=== PATIENT | female | born 1970 | race Asian ===

== ENCOUNTER 2020-10-03 10:57 | Observation (INO) | payer BC ==
[2020-10-03 11:53] LABS: Urine Blood 3+ (Negative); Urine Glucose Negative (Negative); Urine Protein 2+ (Negative); Urine Specific Gravity >=1.030 (1.005-1.030); Urine pH 5.5 (5.0-7.0)
[2020-10-03 12:07] LABS: Urine Specific Gravity/Preg >1.030 (1.005-1.030)
--- NOTE | 2020-10-03 12:40 | RAD REPORT ---
EXAM DESCRIPTION: US - Transvaginal Study Probe - 10/03/2020 12:09 pm CLINICAL HISTORY: ABD PAIN Pelvic pain. COMPARISON: No comparisons FINDINGS: The uterus is normal in size, shape and echotexture. At the level of the uterine mid body there is a small 1 cm hypoechoic submucosal fibroid noted there is also potentially The uterus measur es 10.4 x 6.8 x 5.6 cm. The endometrial stripe measures 4 mm, normal. Both ovaries are normal in size, shape and echotexture. The right ovary measures 3.8 x 2.8 cm. The left ovary measures 3.2 x 2.8 cm. No ovarian or parovarian lesions. No adnexal masses. Normal Doppler blood flow was demonstrated to both ovaries. No significant pelvic ascites. IMPRESSION: Small submucosal fibroid at the level of the mid body of the uterus.
[2020-10-03 12:45] LABS: Hematocrit 26.6 % (36.0-45.0); MPV 9.2 fL (7.6-11.3); RBC Red Blood Cell Count 4.21 M/uL (3.86-4.86)
[2020-10-03 12:55] LABS: Protime INR 0.97
--- NOTE | 2020-10-03 12:58 | RAD REPORT ---
EXAM DESCRIPTION: RAD - Chest Single View - 10/03/2020 12:44 pm CLINICAL HISTORY: COUGH, intermittent shortness of breath COMPARISON: None TECHNIQUE: AP portable chest image was obtained 10/03/2020 12:44 pm . FINDINGS: Lungs are clear. Heart and vasculature are normal. No measurable pleural effusion and no p neumothorax. No acute bony abnormality seen. No acute aortic findings suspected. IMPRESSION: No acute cardiopulmonary process.
[2020-10-03 13:00] LABS: Albumin 3.4 g/dL (3.4-5.0); Bilirubin Direct 0.2 mg/dL (0-0.2); Bilirubin Total 0.4 mg/dL (0.2-1.0); Magnesium 1.8 mg/dL (1.8-2.4); Troponin (Emerg Dept Use Only) 0.06 ng/mL (0.0-0.045)
[2020-10-03 13:37] LABS: Anisocytosis 1+; Blood Morphology Comment NOTED (NOT SEEN); Hypochromasia 2+; Platelet Estimate ADEQ
[2020-10-03 13:38] LABS: Ovalocytes 1+
--- NOTE | 2020-10-03 13:39 | ER ---
Nurse's Notes [facility] Name: Max Montana Age: 50 yrs Sex: Female : 1970 Arrival Date: 10/03/2020 Time: 10:58 Bed 15 Private MD: Jessika Putnam K Diagnosis: Abnormal uterine and vaginal bleeding, unspecified;Dizziness and giddiness;Weakness-ELEVATED TROPONIN;Syncope Near Presentation: 10/03 11:11 Chief complaint: Patient states: Heavy menstrual cycle since Wednesday, reports that she ph is passing large clots, c/o dizziness, headache, and intermittent SOB, near syncopal episode today while at the gym. Coronavirus screen: Client denies travel out of the [place] in the last 14 days. At this time, the client does not indicate any symptoms associated with coronavirus-19. Ebola Screen: No symptoms or risks identified at this time. Initial Sepsis Screen: Does the patient meet any 2 criteria? No. Patient's initial sepsis screen is negative. Does the patient have a suspected source of infection? No. Patient's initial sepsis screen is negative. Risk Assessment: Do you want to hurt yourself or someone else? Patient reports no desire to harm self or others. Onset of symptoms was October 03, 2020. 11:11 Method Of Arrival: Ambulatory ph 11:11 Acuity: REE 3 ph Historical: - Allergies: 11:13 No Known Allergies; ph - PMHx: 11:13 None; ph - Immunization history:: Client reports receiving the 2nd dose of the Covid vaccine. - Social history:: Smoking status: Patient denies any tobacco usage or history of. - Family history:: not pertinent. Screenin:13 Abuse screen: Denies threats or abuse. Denies injuries from another. Nutritional tr6 screening: No deficits noted. Tuberculosis screening: No symptoms or risk factors identified. Fall Risk None identified. Assessment: 13:00 General: Appears in no apparent distress. comfortable, Behavior is calm, cooperative, tr6 appropriate for age. Pain: Complains of pain in lower abdominal cramping. Neuro: No deficits noted. Cardiovascular: No deficits noted. Respiratory: No deficits noted. GI: Abdomen is flat, non-distended, Bowel sounds present X 4 quads. Abd is non tender. : Reports vaginal bleeding that is with clots. EENT: No deficits noted. Derm: No deficits noted. Musculoskeletal: No deficits noted. 13:01 Reassessment: pt reports that she began feeling dizzy earlier this mornign. tr6 13:04 Reassessment: MD Croft at bedside to assess pt. ph Vital Signs: 11:11 BP 113 / 74; Pulse 83; Resp 18; Temp 98.0; Pulse Ox 100% on R/A; Weight 51.71 kg; ph Height 5 ft. 1 in. (154.94 cm); 11:11 Body Mass Index 21.54 (51.71 kg, 154.94 cm) ph ED Course: 10:58 Patient arrived in ED. am2 10:59 Jessika Putnam MD is Private Physician. am2 11:13 Triage completed. ph 11:13 Arm band placed on Patient placed in an exam room. ph 11:14 Tomi Croft MD is Attending Physician. [facility] 11:32 Vandana Mcdowell RN is Primary Nurse. tr6 11:53 Patient has correct armband on for positive identification. Placed in gown. Bed in low mh5 position. Call light in reach. Side rails up X 1. Adult w/ patient. Warm blanket given. classroom monitor on. Pulse ox on. NIBP on. 11:53 Urine collected: clean catch specimen, blood tinged. 5 12:07 Transvaginal Study (Probe) In Process Unspecified. EDNH 12:35 Liver (Hepatic) Function Sent. 5 12:35 Magnesium Sent. 5 12:35 CBC with Automated Diff Sent. 5 12:35 Basic Metabolic Panel Sent. 5 12:35 Type And Screen Sent. 5 12:35 Basic Metabolic Panel Sent. 5 12:35 CBC with Diff Sent. mh5 12:35 LFT's Sent. 5 12:35 Magnesium Sent. 5 12:36 NT PRO-BNP Sent. 5 12:36 PT-INR Sent. 5 12:36 Troponin (emerg Dept Use Only) Sent. 5 12:36 Initial lab(s) drawn, by me, sent to lab. EKG done, by ED staff, reviewed by Tomi Crfot MD T\T\S collected, blood band applied to patient. Inserted saline lock: 20 gauge in right upper arm, using aseptic technique. Blood collected. 12:44 XRAY Chest (1 view) In Process Unspecified. EDNH 13:33 Priscilla Daniel MD is Hospitalizing Provider. [facility] 17:13 No provider procedures requiring assistance completed. Patient admitted, IV remains in tr6 place. Administered Medications: 13:57 Drug: NS 0.9% 500 ml Route: IV; Rate: bolus; Site: right upper arm; tr6 15:40 Drug: NS 0.9% 1000 ml Route: IV; Rate: 125 ml/hr; Site: right antecubital; tr6 Outcome: 13:38 Decision to Hospitalize by Provider. [facility] 17:13 Admitted to Med/surg family with patient, via wheelchair, with chart, Report called to tr6 katie 17:13 Condition: stable 17:13 Instructed on the need for admit. 17:41 Patient left the ED. tr6 Signatures: Dispatcher [employer] EDMS Tomi Croft MD MD cha Hall, Patricia, RN RN Hoda Avila [facility] Sommer Mark [facility] Vandana Mcdowell RN RN tr6
--- NOTE | 2020-10-03 13:39 | EDPHYS ---
Physician Documentation [facility] Name: Max Montana Age: 50 yrs Sex: Female : 1970 Arrival Date: 10/03/2020 Time: 10:58 Bed 15 Private MD: Jessika Putnam K ED Physician Tomi Croft HPI: 10/03 13:26 This 50 yrs old Female presents to ER via Ambulatory with complaints of benjamín Dizziness, Vaginal Bleeding - blood clots. 13:26 The patient presents with dizziness. Onset: The symptoms/episode began/occurred just benjamín prior to arrival. Context: occurred GYM. Modifying factors: The symptoms are alleviated by lying down, the symptoms are aggravated by ACTIVITY. Associated signs and symptoms: The patient has no apparent associated signs or symptoms. Severity of symptoms: At their worst the symptoms were mild in the emergency department the symptoms have improved mildly. Patient's baseline: Neuro: alert and fully oriented. The patient has not experienced similar symptoms in the past. Historical: - Allergies: 11:13 No Known Allergies; ph - PMHx: 11:13 None; ph - Immunization history:: Client reports receiving the 2nd dose of the Covid vaccine. - Social history:: Smoking status: Patient denies any tobacco usage or history of. - Family history:: not pertinent. ROS: 13:26 Constitutional: Negative for fever, chills, and weight loss, Eyes: Negative for injury, benjamín pain, redness, and discharge, ENT: Negative for injury, pain, and discharge, Neck: Negative for injury, pain, and swelling, Cardiovascular: Negative for chest pain, palpitations, and edema, Respiratory: Negative for shortness of breath, cough, wheezing, and pleuritic chest pain, Abdomen/GI: Negative for abdominal pain, nausea, vomiting, diarrhea, and constipation, Back: Negative for injury and pain, MS/Extremity: Negative for injury and deformity, Skin: Negative for injury, rash, and discoloration, Psych: Negative for depression, anxiety, suicide ideation, homicidal ideation, and hallucinations, Allergy/Immunology: Negative for hives, rash, and allergies, Endocrine: Negative for neck swelling, polydipsia, polyuria, polyphagia, and marked weight changes, Hematologic/Lymphatic: Negative for swollen nodes, abnormal bleeding, and unusual bruising. 13:26 : Positive for vaginal bleeding. 13:26 Neuro: Positive for dizziness, weakness. Exam: 13:26 Constitutional: This is a well developed, well nourished patient who is awake, alert, benjamín and in no acute distress. Head/Face: Normocephalic, atraumatic. Eyes: Pupils equal round and reactive to light, extra-ocular motions intact. Lids and lashes normal. Conjunctiva and sclera are non-icteric and not injected. Cornea within normal limits. Periorbital areas with no swelling, redness, or edema. ENT: Nares patent. No nasal discharge, no septal abnormalities noted. Tympanic membranes are normal and external auditory canals are clear. Oropharynx with no redness, swelling, or masses, exudates, or evidence of obstruction, uvula midline. Mucous membranes moist. Neck: Trachea midline, no thyromegaly or masses palpated, and no cervical lymphadenopathy. Supple, full range of motion without nuchal rigidity, or vertebral point tenderness. No Meningismus. Chest/axilla: Normal chest wall appearance and motion. Nontender with no deformity. No lesions are appreciated. Cardiovascular: Regular rate and rhythm with a normal S1 and S2. No gallops, murmurs, or rubs. Normal PMI, no JVD. No pulse deficits. Respiratory: Lungs have equal breath sounds bilaterally, clear to auscultation and percussion. No rales, rhonchi or wheezes noted. No increased work of breathing, no retractions or nasal flaring. Abdomen/GI: Soft, non-tender, with normal bowel sounds. No distension or tympany. No guarding or rebound. No evidence of tenderness throughout. Back: No spinal tenderness. No costovertebral tenderness. Full range of motion. Skin: Warm, dry with normal turgor. Normal color with no rashes, no lesions, and no evidence of cellulitis. MS/ Extremity: Pulses equal, no cyanosis. Neurovascular intact. Full, normal range of motion. Neuro: Awake and alert, GCS 15, oriented to person, place, time, and situation. Cranial nerves II-XII grossly intact. Motor strength 5/5 in all extremities. Sensory grossly intact. Cerebellar exam normal. Normal gait. Psych: Awake, alert, with orientation to person, place and time. Behavior, mood, and affect are within normal limits. 14:49 ECG was reviewed by the Attending Physician. [facility] Vital Signs: 11:11 BP 113 / 74; Pulse 83; Resp 18; Temp 98.0; Pulse Ox 100% on R/A; Weight 51.71 kg; ph Height 5 ft. 1 in. (154.94 cm); 11:11 Body Mass Index 21.54 (51.71 kg, 154.94 cm) ph MDM: 11:14 Patient medically screened. [facility] 13:31 Differential diagnosis: cardiac arrhythmia, generalized weakness, hypovolemia, benjamín near-syncope. Data reviewed: vital signs, nurses notes, lab test result(s), EKG, radiologic studies, plain films, ultrasound. Data interpreted: mounter clarinets: rate is 83 beats/min, rhythm is regular, Pulse oximetry: on room air is 100 %. Test interpretation: by ED physician or midlevel provider: ECG, plain radiologic studies. Counseling: I had a detailed discussion with the patient and/or guardian regarding: the historical points, exam findings, and any diagnostic results supporting the discharge/admit diagnosis, lab results, radiology results, the need for further work-up and treatment in the hospital. 10/03 11:15 Order name: Basic Metabolic Panel [facility] 10/03 11:15 Order name: CBC with Diff [facility] 10/03 11:15 Order name: LFT's [facility] 10/03 11:15 Order name: Magnesium [facility] 10/03 11:15 Order name: NT PRO-BNP; Complete Time: 13:01 [facility] 10/03 11:15 Order name: PT-INR; Complete Time: 13:12 [facility] 10/03 11:15 Order name: Troponin (emerg Dept Use Only); Complete Time: 13:01 [facility] 10/03 11:15 Order name: Type And Screen [facility] 10/03 11:16 Order name: Basic Metabolic Panel; Complete Time: 13:01 [facility] 10/03 11:16 Order name: CBC with Automated Diff; Complete Time: 13:42 [facility] 10/03 11:16 Order name: Liver (Hepatic) Function; Complete Time: 13:01 [facility] 10/03 11:16 Order name: Magnesium; Complete Time: 13:01 [facility] 10/03 11:53 Order name: Urine Dipstick-Ancillary; Complete Time: 12:06 [facility] 10/03 11:53 Order name: Urine --Ancillary (enter results); Complete Time: 12:19 em1 10/03 11:15 Order name: XRAY Chest (1 view); Complete Time: 12:58 [facility] 10/03 11:15 Order name: EKG; Complete Time: 11:16 [facility] 10/03 11:15 Order name: Cardiac monitoring; Complete Time: 11:20 [facility] 10/03 11:15 Order name: EKG - Nurse/Tech; Complete Time: 12:36 [facility] 10/03 11:15 Order name: IV Saline Lock; Complete Time: 12:33 [facility] 10/03 11:15 Order name: Labs collected and sent; Complete Time: 12:33 [facility] 10/03 11:15 Order name: O2 Per Protocol; Complete Time: 12:33 [facility] 10/03 11:15 Order name: O2 Sat Monitoring; Complete Time: 12:33 [facility] 10/03 11:15 Order name: Urine Dipstick-Ancillary (obtain specimen); Complete Time: 11:52 [facility] 10/03 11:15 Order name: US Transvaginal Study (Probe); Complete Time: 12:50 [facility] 10/03 13:07 Order name: Manual Differential; Complete Time: 13:42 [facility] 10/03 14:14 Order name: ABO/RH no charge [facility] 10/03 14:35 Order name: CONS Physician Consult [facility] 10/03 14:35 Order name: Heart Healthy [facility] 10/03 11:15 Order name: Urine Test (obtain specimen); Complete Time: 11:53 [facility] EC:49 Rate is 71 beats/min. Rhythm is regular. QRS [place] is Normal. IA interval is normal. QRS benjamín interval is normal. QT interval is normal. No Q waves. T waves are Normal. No ST changes noted. Clinical impression: NSR w/ Non-specific ST/T Changes, LVH, and No evidence of ischemia. Interpreted by me. Reviewed by me. Administered Medications: 13:57 Drug: NS 0.9% 500 ml Route: IV; Rate: bolus; Site: right upper arm; tr6 15:40 Drug: NS 0.9% 1000 ml Route: IV; Rate: 125 ml/hr; Site: right antecubital; tr6 Disposition Summary: 10/03/20 13:38 Hospitalization Ordered Hospitalization Status: Observation benjamín Provider: Priscilla Daniel cha Condition: Fair benjamín Problem: new benjamín Symptoms: have improved benjamín Bed/Room Type: Standard benjamín [facility]10[facility]20 16:31[facility] em1 Room Assignment: [facility]-(10/03/20 16:31) em1 Diagnosis - Abnormal uterine and vaginal bleeding, unspecified benjamín - Dizziness and giddiness benjamín - Weakness - ELEVATED TROPONIN benjamín - Syncope Near benjamín Forms: - Medication Reconciliation Form benjamín - SBAR form benjamín Signatures: Dispatcher [employer] EDMS Tomi Croft MD MD cha Martinez, Eric em1 Angelika Velasquez RN RN Vandana Mcdowell RN RN tr6 Corrections: (The following items were deleted from the chart) 16: 13:38 Telemetry/MedSurg (observation) [facility] em1 16:31 13:38 [facility]
[2020-10-03] MEDS ORDERED: NA CHLORIDE 0.9% 500 ML ONE (14:06)
[2020-10-03] MEDS ORDERED: NA CHLORIDE 0.9% 1,000 ML ONE (14:07)
[2020-10-03] MEDS ORDERED: ACETAMINOPHEN 500 MG TAB PO PRN (14:30)
[2020-10-03] MEDS ORDERED: MORPHINE 2 MG/ML SYR IV PRN (14:30)
[2020-10-03] MEDS ORDERED: ONDANSETRON 4 MG/2 ML VIAL IV PRN (14:30)
[2020-10-03] MEDS ORDERED: NA CHLORIDE 0.9% 1,000 ML IV SCH (15:00)
[2020-10-03 17:46] VITALS: O2SAT 100
[2020-10-03 18:18] LABS: Absolute Lymphocytes (CBC) 1.6 K/uL (0.7-4.9); Basophils % 0.8 % (0-1.3); Hematocrit 21.1 % (36.0-45.0); MPV 9.7 fL (7.6-11.3); RBC Red Blood Cell Count 3.33 M/uL (3.86-4.86)
[2020-10-03 18:38] VITALS: BMI 21.5
[2020-10-03 18:57] LABS: Folic Acid, (Folate) > 20.0 ng/mL (3.1-17.5)
[2020-10-03 19:11] LABS: Blood Morphology Comment NOTED (NOT SEEN); Platelet Estimate DECR; White Blood Cell Scan OK (OK)
[2020-10-03 19:12] LABS: Anisocytosis 1+; Hypochromasia 1+
[2020-10-03] MEDS ORDERED: ESTROGENS,CONJ 25 MG IV IV ONE (19:44)
[2020-10-03] MEDS ORDERED: ESTROGENS,CONJ 25 MG IV ONE (20:20)
--- NOTE | 2020-10-03 20:24 | CON ---
History Of Present Illness: A 50-year-old female, admitted through the emergency room with severe pe rimenopausal bleeding. The patient had had no periods since July and then started bleeding heavily over the last 3 days, passing large clots. She is seen in the emergency room. Hemoglobin there was 8. Noted to have a subserosal fibroid. She was put in Labor and Delivery area, [facility] [place]. Ble eding continued. Her hemoglobin is now 6. She is still stable, but 2 units of blood have been order ed for blood transfusion. Dr. Croft typed and crossed her in the emergency room. Physical Examination: General: The patient is alert. Vital Signs: All stable. Pelvic: Exam shows an enlarged uterus. Difficult to say exactly where this fibroid is, but it almos t seemed like is in the cervical area, although it was mentioned in the subserosal, but exact locatio n i am not aware of. The patient said she is aware that she has had a fibroid, but has not seen a do ctor in several years. Allergies: SHE IS NOT ALLERGIC TO ANY MEDICATIONS. AFTER DISCUSSION, A SPECULUM WAS INTRODUCED. CERVIX WAS CLEANED WITH IODINE. AN ENDOMETRIAL BIOPSY X2 WAS TAKEN WITH GYNOSAMPLER. GOOD AMOUNT OF TISSUE WAS OBTAINED. WE WILL GIVE PATIENT PREMARIN 25 MG IV AND THEN START CONTROL PILLS LATER THIS AFTERNOON OR THIS EVENING. IF BLEEDING COMES UN SORAYA CONTROL, SHE CAN STILL BE ON CONTROL PILLS FOR SEVERAL MONTHSOR EVEN A COUPLE OF YEARS TO T RY TO MAKE SURE THIS DOES NOT RECUR. IF BLEEDING DOES NOT COME UNDER CONTROL, WE WILL CONSULT DR. JACQUELIN MCGINNIS AND SEE IF THE PATIENT WOULD PREFER A HYSTERECTOMY. THERE ARE NEW MEDICINES ON THE MARKET NO W FOR BLEEDING CAUSED BY FIBROIDS, AND I HAVE DISCUSSED THAT WITH THE PATIENT BUT RIGHT NOW THE IMMED IATE TASK IS TO TRY TO SLOW THE BLEEDING DOWN. 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 [facility]. 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 FOLLOWUP ACCORDING TO BIOPSY REPORT AND RESPONSE TO MEDICATIONS OUTLINED. FULL DISCUSSION WITH THE PATIENT. FANY/QUOC Voice ID: [id number] Report ID: [id number]
[2020-10-03] MEDS ORDERED: NA CHLORIDE 0.9% 100 ML ONE (22:31)
[2020-10-04] MEDS ORDERED: NA CHLORIDE 0.9% 100 ML ONE (01:45)
[2020-10-04 05:10] VITALS: TEMP 97.3
--- NOTE | 2020-10-04 06:20 | EKG ---
Test Date: 2020-10-03 Test Time: 12:50:37 [employer] Sheriff: VAMSHI MEASUREMENT RESULTS: Intervals: Rate: 71 DE: 130 QRSD: 86 QT: 404 QTc: 439 [place]: P: 76 DE: 130 QRS: 70 T: 59 INTERPRETIVE STATEMENTS: Normal sinus rhythm Minimal voltage criteria for LVH, may be normal variant Borderline ECG No previous ECG available for comparison Electronically Signed On 10-04-20 06:17:50 CDT by Capo Mancini
[2020-10-04 07:11] LABS: Absolute Lymphocytes (CBC) 1.5 K/uL (0.7-4.9); Basophils % 1.2 % (0-1.3); Hematocrit 28.5 % (36.0-45.0); Lymphocytes % 21.8 % (15.3-44.8); MPV 9.4 fL (7.6-11.3); RBC Red Blood Cell Count 4.03 M/uL (3.86-4.86)
[2020-10-04 07:15] LABS: Protime INR 1.01
[2020-10-04 07:33] LABS: ALT/SGPT 25 U/L (12-78); AST/SGOT 21 U/L (15-37); Albumin 2.7 g/dL (3.4-5.0); Alkaline Phosphatase 31 U/L (45-117); BUN Blood Urea Nitrogen 11 mg/dL (7-18); Bicarbonate 27 mmol/L (21-32); Bilirubin Total 0.4 mg/dL (0.2-1.0); Glucose Level 84 mg/dL (74-106); Potassium 3.9 mmol/L (3.5-5.1); Protein, Total 5.3 g/dL (6.4-8.2); Sodium Level 143 mmol/L (136-145)
--- NOTE | 2020-10-04 07:56 | DS ---
Hospital Course: The patient is doing much better today. Her hemoglobin dropped 6.2, is now passed up to 9 after 2 units of blood. Another level is pending at this point, expected to be the same or l ittle bit higher. Pulse is good. Blood pressure is good. She is ambulating without any type of diz ziness or problems. Her bleeding is minimal. She says she only use 1 pad during the night. We have discussed options of continuing control pills 2 a day for 5 days and then 1 a day for probably at least next 30 days. Depo-Provera shot, progesterone IUD are even the new medication for treatmen t of uterine fibroids, which she will do research on and we will discuss in the office next week. Of course, we need to wait for pathology before we start any new medications other than what we have go ing right now. If pathology shows no problems, obviously we will stick with medications since this s eems to be effective at this point. She knows if the pathology report shows something significant, t hen the course of action would changing and we would probably recommend surgical management. We will ambulate the patient, see what the blood count shows, and then if all looks good, probably let her g o home sometime later this morning to follow up in my office sometime next week. Full discussion. Final Diagnoses: Perimenopausal bleeding - severe, blood transfusion. Endometrial biopsy taken. Ho rmonal medication, Premarin 25 mg IV plus control pills started. FANY/QUOC Voice ID: [id number] Report ID: [id number]
[2020-10-04 08:03] VITALS: BP 120/66
--- NOTE | 2020-10-04 09:33 | P.HP ---
Certification for Inpatient Patient admitted to: Observation With expected LOS: <2 Midnights Patient will require the following post-hospital care: None Practitioner: I am a practitioner with admitting privileges, knowledge of patient current condition, hospital course, and medical plan of care. Services: Services provided to patient in accordance with Admission requirements found in Title 42 Section 412.3 of the Code of Federal Regulations Patient History Date of Service: 10/03/20 Allergies No Known Allergies Allergy (Verified 10/03/20 23:35) Home Medications: Multivitamin 1 each PO DAILY 10/03/20 Cyanocobalamin/Cobamamide [Vitamin B-12 5,000 Mcg Tab Sl] 1 each SL DAILY #30 tab.subl 10/04/20 Ferrous Sulfate [Ferrous Sulfate Elixir] 5 ml PO BID #500 ml 10/04/20 - Past Medical/Surgical History Diabetic: No -: Anemia Past Surgical History: Patient denies surgical history - Family History Father Medical History: Diabetes - Social History Smoking Status: Never smoker Alcohol use: Yes CD- Drugs: No Caffeine use: Yes Place of Residence: Home Review of Systems 10-point ROS is otherwise unremarkable Physical Examination - Vital Signs Temperature: 97.3 F Blood Pressure: 120/66 Pulse: 70 Respirations: 18 Pulse Ox (%): 100 - Physical Exam General: Alert, In no apparent distress, Oriented x3 HEENT: Atraumatic, PERRLA, Mucous membr. moist/pink, EOMI, Sclerae nonicteric Neck: Supple, 2+ carotid pulse no bruit, No LAD, Without JVD or thyroid abnormality Respiratory: Clear to auscultation bilaterally, Normal air movement Cardiovascular: Regular rate/rhythm, Normal S1 S2, No murmurs Gastrointestinal: Normal bowel sounds, Soft and benign, Non-distended, No tenderness Musculoskeletal: No clubbing, No swelling, No tenderness Integumentary: No rashes Neurological: Normal gait, Normal speech, Normal strength at 5/5 x4 extr, Normal tone, Sensation intact, Cranial nerves 3-12 intact, Normal affect Lymphatics: No axilla or inguinal lymphadenopathy - Studies Laboratory Data (last 24 hrs) 10/03/20 12:30: PT 11.1, INR 0.97 10/03/20 12:30: WBC 11.00 H, Hgb 8.2 L, Hct 26.6 L, Plt Count 194 10/03/20 12:30: Sodium 140, Potassium 4.0, BUN 17, Creatinine 0.92, Glucose 89, Magnesium 1.8, Total Bilirubin 0.4, AST 34, ALT 34, Alkaline Phosphatase 41 L Assessment & Plan - Problems (Diagnosis) (1) Fe deficiency anemia Current Visit: Yes Status: Acute (2) Dysfunctional uterine bleeding Current Visit: Yes Status: Acute - Plan PLAN: 1. CONTINUE WITH MORTGAGE PROFESSIONAL CONSULT 2. ENDOMETRIAL BIOPSY 3. TRANSFUSE 2U PRBC 4. ANEMIA WORK-UP 5. GI PROPHYLAXIS Discharge Plan: Home Plan to discharge in: 24 Hours - Advance Directives Does patient have a Living Will: No Does patient have a Durable POA for Healthcare: No - Code Status/Comfort Care Code Status Assessed: Yes Code Status: Full Code Critical Care: No Time Spent Managing PTS Care (In Minutes): 50
--- NOTE | 2020-10-04 09:47 | P.DS ---
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 PATIENT WAS FEELING HAVING HEAVY PERIODS FOR THE LAST FEW WEEKS. PATIENT CONDITION PROGRESSED TO SYNCOPE. PATIENT WAS ADMITTED FOR FURTHER EVALUATION. PATIENT HAD FIBROIDS ON US. PATIENT IS CLOSE TO MENOPAUSAL. PATIENT MAY BENEFIT FOR SHORT TERM HORMONES OR DEPO. WE WILL AWAIT FOR OB EVALUATION. Hospital Course: S/P ENDOMETRIAL BIOPSY. OUTPT FOLLOW-UP WITH DR. BARON. IRON SUPPLEMENTATION. HRT THERAPY TO REGULATE THE D.U.B. Vital Signs/Physical Exam: Temp Pulse Resp BP Pulse Ox 97.3 F 70 18 120/66 100 10/04/20 09:33 10/04/20 09:33 10/04/20 09:33 10/04/20 09:33 10/04/20 09:33 General: Alert, In no apparent distress, Oriented x3 Laboratory Data at Discharge: WBC 6.70 K/uL (4.3-10.9) 10/04/20 06:51 Hgb Cancelled 10/04/20 07:00 Hct Cancelled 10/04/20 07:00 Plt Count 139 K/uL (152-406) L 10/04/20 06:51 PT 11.6 SECONDS (9.5-12.5) 10/04/20 06:51 INR 1.01 10/04/20 06:51 APTT 23.8 SECONDS (24.3-36.9) L 10/04/20 06:51 Sodium 143 mmol/L (136-145) 10/04/20 06:51 Potassium 3.9 mmol/L (3.5-5.1) 10/04/20 06:51 BUN 11 mg/dL (7-18) 10/04/20 06:51 Creatinine 0.61 mg/dL (0.55-1.3) 10/04/20 06:51 Glucose 84 mg/dL (74-106) 10/04/20 06:51 Magnesium 1.8 mg/dL (1.8-2.4) 10/03/20 12:30 Total Bilirubin 0.4 mg/dL (0.2-1.0) 10/04/20 06:51 AST 21 U/L (15-37) 10/04/20 06:51 ALT 25 U/L (12-78) 10/04/20 06:51 Alkaline Phosphatase 31 U/L (45-117) L 10/04/20 06:51 Home Medications: Multivitamin 1 each PO DAILY 10/03/20 Cyanocobalamin/Cobamamide [Vitamin B-12 5,000 Mcg Tab Sl] 1 each SL DAILY #30 tab.subl 10/04/20 Ferrous Sulfate [Ferrous Sulfate Elixir] 5 ml PO BID #500 ml 10/04/20 New Medications: Ferrous Sulfate [Ferrous Sulfate Elixir] 5 ml PO BID #500 ml Cyanocobalamin/Cobamamide [Vitamin B-12 5,000 Mcg Tab Sl] 1 each SL DAILY #30 tab.subl Physician Discharge Instructions: OK TO DC IV AND DC HOME FOLLOW-UP WITH PCP IN 1-2 WEEKS RETURN TO THE ER IF SYMPTOMS WORSENS CALL DR. COLLIER AT [phone] IF ANY QUESTIONS REGARDING HOSPITAL STAY FOLLOW-UP WITH OB-LAB INTERN IN 1-2 WEEKS Diet: Regular Activity: Fall precautions Followup: Jaymie Baron MD [ACTIVE - CAN ADMIT] - Jessika Putnam MD [Primary Care Provider] - Time spent managing pt's care (in minutes): 25
== END 2020-10-04 10:45 | disposition home or self-care (01) ==
LOC: ER 10:57 → ERHOLD 14:30 → 2ND-WC 17:13
PROVIDERS: ADMIT Hospitalist; ATTEND Hospitalist
PROC: 0UDB7ZX Extraction of Endometrium, Via Natural or Artificial Opening, Diagnostic (ICD-10-PCS; principal; 2020-10-03)
DX: N93.8 Other specified abnormal uterine and vaginal bleeding (principal); D50.9 Iron deficiency anemia, unspecified; D25.0 Submucous leiomyoma of uterus
CPT/HCPCS: 36430; 93005; 85025 ×3; 80048; 36415; 86900; 83735; 86850; 81025; 85610 ×2; 86901; 80076; 88305; 85730; 81003; 84484; 82746; 82607; 83540; 80053; 83880; 71045; 76830; 99285; 58100; J1410 ×2; P9016 ×2; J7040; J7030 ×2; G0378 ×3